=== PATIENT | female | born 2000 | race Hispanic/Latino ===

== ENCOUNTER 2022-02-23 11:13 | Emergency (ER) | payer SELFPAY ==
[~2022-02-23] VITALS: Ht 160 cm; Wt 145.1 kg
[2022-02-23 12:02] LABS: CLARITY,URINE HAZY (CLEAR); COLOR,URINE YELLOW (YELLOW); LEUKOCYTE ESTERASE ,URINE LARGE (NEGATIVE); NITRITE,URINE NEGATIVE (NEGATIVE); PROTEIN,URINE DIPSTICK NEGATIVE (NEGATIVE)
[2022-02-23 12:03] LABS: KETONES,URINE NEGATIVE (NEGATIVE); URINE UROBILINOGEN 0.2 mg/dL (0.2 - 1)
[2022-02-23 12:06] LABS: BACTERIA,URINE MODERATE /HPF; EPITHELIAL CELLS,URINE MANY /LPF; WBC,URINE (MAN) >50 /HPF (0-5)
[2022-02-23] MEDS ORDERED: MACROBID 100 M100 MG PO (12:20)
== END 2022-02-23 12:54 | disposition home or self-care (01) ==
LOC: ER 11:24
DX: O23.11 Infections of bladder in pregnancy, first trimester (principal)
CPT/HCPCS: 81001; 81025; 99283